=== PATIENT | male | born 2000 | race African-American/Black ===

== ENCOUNTER 2024-01-13 19:11 | Emergency (ER) | payer OTHER ==
[~2024-01-13] VITALS: Ht 170.2 cm; Wt 58.6 kg
[2024-01-13 19:15] VITALS: BP 113/73; TEMP 97.4; O2SAT 98
[2024-01-13 21:22] LABS: Trichomonas vaginalis (AMP) NOT DETECTED (NEGATIVE)
[2024-01-13 21:45] LABS: GC DNA AMPLIFICATION NEGATIVE (NEGATIVE)
== END 2024-01-13 23:51 | disposition home or self-care (01) ==
LOC: M ED 19:11
DX: I86.1 Scrotal varices (principal)